=== PATIENT | female | born 1965 | race American Indian/Alaskan Native ===

== ENCOUNTER 2016-06-08 13:28 | Emergency (ER) | payer OTHER ==
[2016-06-08 13:34] VITALS: BP 110/73; RESP 18; TEMP 98.2
--- NOTE | 2016-06-08 13:56 | C.PDOC ---
History Of Present Illness 51 year old patient presents to the ED complaining of nasal congestion, sore throat and non-productive cough for the past 4-5 days. Patient also complains of fever and chills since last night. Patient has multiple foster kids who recently had similar symptoms. Patient denies chest pain, shortness of breath, abdominal pain, nausea, vomiting, diarrhea, dysuria/hematuria. Time Seen by Provider: 06/08/16 13:36 Chief Complaint (Nursing): Cough, Cold, Congestion History Per: Patient History/Exam Limitations: no limitations Onset/Duration Of Symptoms: Days (4-5) Current Symptoms Are (Timing): Still Present Location Of Pain: Throat Sick Contacts (Context): Family Member(s) Associated Symptoms: Sore Throat, Cough, Nasal Congestion Ear Symptoms: Bilateral: None Severity: Mild Past Medical History Reviewed: Historical Data, Nursing Documentation, Vital Signs Vital Signs: Last Vital Signs Temp 98.2 F 06/08/16 13:32 Pulse 85 06/08/16 14:06 Resp 18 06/08/16 14:06 BP 110/73 06/08/16 13:32 Pulse Ox 100 06/08/16 15:18 - Medical History PMH: Anxiety, HTN Family History: States: No Known Family Hx - Social History Hx Tobacco Use: Yes Hx Alcohol Use: No Hx Substance Use: No - Immunization History Hx Tetanus Toxoid Vaccination: Yes Hx Influenza Vaccination: Yes Hx Pneumococcal Vaccination: No Review Of Systems Except As Marked, All Systems Reviewed And Found Negative. Constitutional: Positive for: Fever, Chills ENT: Positive for: Nose Congestion, Throat Pain Cardiovascular: Negative for: Chest Pain Respiratory: Positive for: Cough. Negative for: Shortness of Breath Gastrointestinal: Negative for: Nausea, Vomiting, Abdominal Pain, Diarrhea Genitourinary: Negative for: Dysuria, Hematuria Physical Exam - Physical Exam Appears: Non-toxic, No Acute Distress Skin: Warm, Dry Head: Normacephalic Eye(s): bilateral: Normal Inspection Oral Mucosa: Moist Throat: Normal, No Erythema, No Exudate, No Drooling Neck: Normal, Normal ROM, Supple Cardiovascular: Rhythm Regular Respiratory: Normal Breath Sounds, No Rales, No Rhonchi, No Wheezing, Other ( speaking in full sentences) Gastrointestinal/Abdominal: Normal Exam, Bowel Sounds, Soft, No Tenderness Back: Normal Inspection, No CVA Tenderness Extremity: Normal ROM Neurological/Psych: Oriented x3 Gait: Steady ED Course And Treatment O2 Sat by Pulse Oximetry: 100 (room air) Pulse Ox Interpretation: Normal Progress Note: Patient given PO Tessalon and Sudafed in ED, as well as Rx for same. He was reassurred that his symptoms are likely viral, and that he should follow up with PMD/clinic in 1-2 days. He understands he should return to ED if symptoms worsen. Disposition Counseled Patient/Family Regarding: Diagnosis, Need For Followup, Rx Given - Disposition Referrals: Michelle Morley MD [Primary Care Provider] - Disposition: HOME/ ROUTINE Disposition Time: 14:05 Condition: STABLE Additional Instructions: FOLLOW UP WITH YOUR DOCTOR/CLINIC IN 1-2 DAYS USE MEDICATIONS DIRECTED DRINK PLENTY OF FLUIDS RETURN TO ER IF SYMPTOMS WORSEN Prescriptions: Benzonatate [Tessalon Perles] 100 mg PO BID PRN #15 sgl PRN Reason: Cough Pseudoephedrine [Sudafed] 60 mg PO Q6 PRN #12 tab PRN Reason: Nasal Congestion Instructions: Upper Respiratory Infection (ED), Viral Syndrome (ED) Forms: Work Excuse Print Language: ROMANIAN - POA Present On Arrival: None - Clinical Impression Clinical Impression: Upper respiratory infection, Viral disease - Scribe Statement The provider has reviewed the documentation as recorded by the Scribe Faiza Hope Provider Attestation: All medical record entries made by the Scribe were at my direction and personally dictated by me. I have reviewed the chart and agree that the record accurately reflects my personal performance of the history, physical exam, medical decision making, and the department course for this patient. I have also personally directed, reviewed, and agree with the discharge instructions and disposition.
[2016-06-08 14:07] VITALS: PULSE 85
[2016-06-08 14:22] VITALS: O2SAT 100
== END 2016-06-08 14:06 | disposition home or self-care (01) ==
LOC: C.ER 13:28 → SUPCPDRO 13:28 → C.ER 14:06
DX: J06.9 Acute upper respiratory infection, unspecified (principal); B34.9 Viral infection, unspecified

== ENCOUNTER 2016-07-24 12:03 | Emergency (ER) | payer OTHER ==
[2016-07-24 12:08] VITALS: BMI 27.4
--- NOTE | 2016-07-24 14:16 | CT ---
PROCEDURE: CT HEAD WITHOUT CONTRAST. HISTORY: Right sided headache COMPARISON: None available. TECHNIQUE: Axial computed tomography images were obtained through the head/brain without intravenous contrast. Radiation dose: Total exam DLP = 845.65 mGy-cm. This CT exam was performed using one or more of the following dose reduction techniques: Automated exposure control, adjustment of the mA and/or kV according to patient size, and/or use of iterative reconstruction technique. FINDINGS: HEMORRHAGE: No intracranial hemorrhage. BRAIN: No mass effect or edema. The arnold-white matter differentiation appears intact. Please note that MRI with diffusion imaging is more sensitive in the detection of acute ischemic event. VENTRICLES: No hydrocephalus. CALVARIUM: Unremarkable. PARANASAL SINUSES: Unremarkable as visualized. No significant inflammatory changes. MASTOID AIR CELLS: Unremarkable as visualized. No inflammatory changes. OTHER FINDINGS: None. IMPRESSION: No acute intracranial pathology identified.
[2016-07-24] MEDS ORDERED: Naproxen 550 mg Tab PO STA (14:30)
--- NOTE | 2016-07-24 14:31 | C.PDOC ---
History Of Present Illness Pt c/o right sided headache/facial pain. Time Seen by Provider: 07/24/16 13:17 Chief Complaint (Nursing): Headache History Per: Patient Onset/Duration Of Symptoms: Days (about 1 week), Waxing/Waning Current Symptoms Are (Timing): Still Present Severity: Moderate Quality: Pressure Associated Symptoms: Other (Nasal congestion) Additional History Per: Prior Records Past Medical History Reviewed: Historical Data, Nursing Documentation, Vital Signs Vital Signs: Last Vital Signs Temp 98.1 F 07/24/16 12:09 Pulse 71 07/24/16 12:09 Resp 16 07/24/16 12:09 BP 126/78 07/24/16 12:09 Pulse Ox 96 07/24/16 12:09 - Medical History PMH: Anxiety, HTN Family History: States: Unknown Family Hx - Social History Hx Tobacco Use: Yes Hx Alcohol Use: No Hx Substance Use: No - Immunization History Hx Tetanus Toxoid Vaccination: No Hx Influenza Vaccination: Yes Hx Pneumococcal Vaccination: No Review Of Systems Except As Marked, All Systems Reviewed And Found Negative. Constitutional: Negative for: Fever, Weakness ENT: Positive for: Ear Pain (right, fullness), Nose Congestion. Negative for: Ear Discharge, Throat Pain Cardiovascular: Negative for: Chest Pain Respiratory: Negative for: Shortness of Breath Gastrointestinal: Negative for: Vomiting, Abdominal Pain Musculoskeletal: Negative for: Neck Pain Skin: Negative for: Rash Neurological: Positive for: Headache. Negative for: Weakness, Numbness, Seizures, Altered Mental Status Physical Exam - Physical Exam Appears: Non-toxic, No Acute Distress Skin: Normal Color, Warm, Dry, No Rash Head: Atraumatic, Normacephalic Eye(s): bilateral: Normal Inspection, PERRL, EOMI Ear(s): Bilateral: Normal Gingiva: No Abscess Throat: Normal Neck: Normal ROM, Supple Lymphatic: No Adenopathy Cardiovascular: Rhythm Regular Respiratory: Normal Breath Sounds, No Accessory Muscle Use Gastrointestinal/Abdominal: Soft, No Tenderness Back: No CVA Tenderness Extremity: Normal ROM Neurological/Psych: Oriented x3, Normal Speech, Normal Cognition, Normal Cranial Nerves, No Cerebellar Signs, Normal Motor, Normal Sensation Gait: Steady ED Course And Treatment O2 Sat by Pulse Oximetry: 96 Pulse Ox Interpretation: Normal - CT Scan/US CT head Other Rad Studies (CT/US): Read By Radiologist, Radiology Report Reviewed CT/US Interpretation: IMPRESSION: No acute intracranial pathology identified. Disposition Counseled Patient/Family Regarding: Studies Performed, Diagnosis, Need For Followup, Rx Given, Smoking Cessation - Disposition Referrals: Michelle Morley MD [Non-Staff] - Disposition: HOME/ ROUTINE Disposition Time: 14:33 Condition: STABLE Additional Instructions: Follow up with your doctor for further evaluation and treatment. Return to the ER if you develop fever, vomiting, worsening of symptoms or if you have any other concerns. Prescriptions: Azithromycin [Zithromax] 1 dose PO DAILY #1 pkt Fluticasone Propionate [Flonase] 2 spr NS DAILY #1 bottle Loratadine [Claritin] 10 mg PO DAILY #30 tab Naproxen [Naprosyn] 1 tab PO BID PRN #20 tab PRN Reason: Pain Instructions: Sinusitis (ED) - Clinical Impression Clinical Impression: Sinus headache, Allergic rhinitis
[2016-07-24] MEDS ORDERED: Naproxen 550 mg Tab PO ONE (14:34)
[2016-07-24 14:51] VITALS: BP 150/79; PULSE 60; RESP 18; TEMP 98.6; O2SAT 99
== END 2016-07-24 14:51 | disposition home or self-care (01) ==
LOC: C.ER 12:03
DX: J30.9 Allergic rhinitis, unspecified (principal); R51 Headache; Z72.0 Tobacco use